=== PATIENT | female | born 1945 | race Caucasian/White ===

== ENCOUNTER → 2017-06-07 | Outpatient (CLI) | payer OTHER ==
[~2017-06-07] MED LIST: ACETAMINOPHEN325 M2 PO; ADVIL,MOTRIN,R200 MG PO; ASPIRIN81 M1 PO; BACTRIM DS 8001 TA1 PO; BLEPH-10 15 ML15 ML OP; CIPRO500 MG PO; CIPROFLOXACIN500 MG PO; COUMADIN1 MG PO; COUMADIN6 M1 PO; Coumadin5 MG PO; FLAGYL500 MG PO; HYDROCODONE BIT1 T11 PO; K-DUR20 MEQ PO; MEDROL DOSEPAK4 MG PO; MULTIPLE VITAMI1 TAB PO; MULTIVITAMIN FO1 CAP PO; NEURONTIN100 MG PO; NORCO 325 MG-51 TAB PO; NORFLEX100 MG PO; OXYCODONE-ACETAMINOP; PERCOCET 325 MG1 TA2 PO; PERCOCET 325 MG1 TA6 PO; PERCOCET 325 MG1 TA7 PO; PREDNICOT20 MG PO; PROBIOTIC FORMU1 CAP PO; SMZ TMP PO; VITAMIN B COMPL PO
[2017-06-07 10:44] LABS: BILIRUBIN NEGATIVE (NEGATIVE); BLOOD NEGATIVE (NEGATIVE); CLARITY CLEAR (CLEAR); COLOR YELLOW (YELLOW); GLUCOSE NEGATIVE (NEGATIVE); KETONE NEGATIVE (NEGATIVE); LEUKO ESTERASE NEGATIVE (NEGATIVE); NITRITE NEGATIVE (NEGATIVE); UROBILINOGEN 0.2 E.U./dl (0.2-1.0)
[2017-06-07 10:50] LABS: BASO # 0.1 10*3/uL (0.0-0.1); BASO % 0.6 % (0.0-1.0); EOS # 0.2 10*3/uL (0.0-0.4); EOS % 3.1 % (1.0-4.0); HEMATOCRIT 44.2 % (37.0-47.0); HEMOGLOBIN 14.5 g/dl (12.0-16.0); LYMPH # 1.8 10*3/uL (1.3-4.4); LYMPH % 23.9 % (27.0-41.0); MEAN CORPUSCULAR HGB 28.9 pg (27.0-31.0); MEAN CORPUSCULAR HGB CONC 32.8 g/dl (33.0-37.0); MEAN PLATELET VOLUME 10.5 fl (9.6-12.3); MONO # 0.6 10*3/uL (0.1-1.0); MONO % 7.8 % (3.0-9.0); NEUT # 4.9 10*3/uL (2.3-7.9); NEUT % 64.1 % (47.0-73.0); PLATELET COUNT AUTOMATED 205 10*3/uL (130-400); RED BLOOD COUNT 5.02 10*6/uL (4.10-5.10); RED CELL DISTRI WIDTH 12.9 % (0-14.5); WHITE BLOOD COUNT 7.7 10*3/uL (4.8-10.8)
[2017-06-07 11:13] LABS: ALBUMIN 3.9 gm/dl (3.1-4.5); CREATININE 1.48 mg/dL (0.55-1.02); CREATININE 1.51 mg/dL (0.55-1.02); PHOSPHOROUS 3.1 mg/dL (2.5-4.9); POTASSIUM 4.1 mmol/L (3.5-5.1); POTASSIUM 4.2 mmol/L (3.5-5.1)
== END | disposition home or self-care (01) ==
LOC: LAB 10:17
PROVIDERS: Internal Medicine Cardiovascular Disease; Internal Medicine Nephrology
DX: N18.3 Chronic kidney disease, stage 3 (moderate) (principal); I51.7 Cardiomegaly; R79.89 Other specified abnormal findings of blood chemistry

== ENCOUNTER 2017-07-10 07:13 | Inpatient (IN) | payer OTHER ==
[~2017-07-10] VITALS: Ht 170.1 cm; Wt 91.9 kg
--- NOTE | ~2017-07-10 | CON ---
[place], [place] REPORT OF CONSULTATION NAME: BLANE JETT UNIT #: [id number] ROOM: 503 DOCTOR: CORAL OCASIO [facility],LIZA BIRTHDATE: [birth year] DOS: 07/11/2017 CARDIOLOGY CONSULTATION IMPRESSION: Chest pain, evaluating for ischemic heart disease, loss of more than a half an hour and there is no recent workup and evaluating for ischemic heart disease with echocardiogram and stress Cardiolite is pending. The patient had a baby aspirin. The patient came to the Emergency Room. The patient has history of hypertension. No history of myocardial infarction and the patient also has dyslipidemia. Denies any nausea, vomiting or shortness of breath. MEDICATIONS: The patient only takes 2 baby aspirins daily. PAST SURGICAL HISTORY: The patient has a surgical history of hernia repair and ileostomy in the past. SOCIAL HISTORY: No history of smoking, quit smoking sometime back, used to smoke years ago and no alcohol or drug use. ALLERGIES: THE PATIENT IS ALLERGIC TO PENICILLIN AND HYDROMORPHONE. PHYSICAL EXAMINATION: VITAL SIGNS: Stable. Blood pressure 137/73 to 122/58, heart rate is 65, respiratory rate is 18, afebrile. GENERAL: Alert, not in any acute distress. NECK: No jugular venous distention, no carotid bruits. Neck is supple. RECTAL AND GENITAL: Deferred, unrelated. BREASTS: Deferred. NEUROLOGIC: No focal neurological deficits. Pulses are good and no evidence of acute coronary syndrome. LABORATORY DATA: Creatinine is 1.41, minimally elevated. Enzymes are unremarkable. Hemoglobin 14.9. Workup is in progress and I will review the myocardial perfusion scan and also the echocardiogram. Thank you very much for asking me to see the patient. I will follow the patient with you. LIZA MONCADA MD CM:CONSTR:REPORT OF CONSULTATION 0711 07/11/172058 interface
--- NOTE | ~2017-07-10 | EKG ---
[place], [place] ELECTROCARDIOGRAM REPORT NAME: BLANE JETT UNIT #: [id number] ROOM: 503 DOCTOR: CORAL OCASIO [facility],LIZA BIRTHDATE: [birth year] DOS: 07/10/2017 TIME: 10:07 CONCLUSION: 1. Sinus rhythm. 2. Cannot exclude old inferior wall infarction. 3. Nonspecific ST changes. LIZA MONCADA MD CM:EKGRPT:ELECTROCARDIOGRAM REPORT [address] [facility]
--- NOTE | ~2017-07-10 | EKG ---
[place], [place] ELECTROCARDIOGRAM REPORT NAME: BLANE JETT UNIT #: [id number] ROOM: [facility] DOCTOR: CORAL OCASIO [facility],LIZA BIRTHDATE: [birth year] DOS: 07/10/2017 TIME: 07:21 CONCLUSION: 1. Sinus rhythm. 2. Poor R-wave progression in the precordial leads. 3. Cannot exclude old inferior wall infarction. LIZA MONCADA MD CM:EKGRPT:ELECTROCARDIOGRAM REPORT 1250 1354 LIZA MONCADA MD [facility]
--- NOTE | ~2017-07-10 | ST ---
[place], [place] EXERCISE STRESS TEST REPORT NAME: BLANE JETT UNIT #: [id number] ROOM: [facility] DOCTOR: CORAL OCASIO [facility],LIZA BIRTHDATE: [birth year] DOS: 07/11/2017 The patient received Lexiscan 0.4 mg over 10 seconds and isotope was injected. Heart rate is 102. Blood pressure response was good. No ischemic changes in the EKG. No complications noted. Myocardial perfusion scan to follow. LIZA MONCADA MD CM:STRESS:EXERCISE STRESS TEST REPORT 0704 22 LATANYA PAIGE MD [facility]
[2017-07-10 07:20] VITALS: BP 146/76
[2017-07-10 07:26] LABS: BASO # 0.1 10*3/uL (0.0-0.1); BASO % 0.7 % (0.0-1.0); EOS # 0.2 10*3/uL (0.0-0.4); EOS % 3.1 % (1.0-4.0); HEMOGLOBIN 14.9 g/dl (12.0-16.0); LYMPH # 1.7 10*3/uL (1.3-4.4); LYMPH % 25.4 % (27.0-41.0); MEAN CELL VOLUME 87.5 fl (81.0-99.0); MEAN CORPUSCULAR HGB CONC 33.1 g/dl (33.0-37.0); MEAN PLATELET VOLUME 10.2 fl (9.6-12.3); MONO # 0.6 10*3/uL (0.1-1.0); MONO % 8.1 % (3.0-9.0); NEUT # 4.2 10*3/uL (2.3-7.9); NEUT % 62.4 % (47.0-73.0); PLATELET COUNT AUTOMATED 211 10*3/uL (130-400); RED BLOOD COUNT 5.14 10*6/uL (4.10-5.10); WHITE BLOOD COUNT 6.8 10*3/uL (4.8-10.8)
[2017-07-10 07:34] LABS: ACT PARTIAL THROMBO TIME 22.8 SECONDS (20.8-31.5)
[2017-07-10 07:41] LABS: ALBUMIN 3.8 gm/dl (3.1-4.5); ALKALINE PHOSPHATASE 79 U/L (45-117); BUN 21 mg/dl (7-24); CHLORIDE 103 mmol/L (98-107); CREATININE 1.41 mg/dL (0.55-1.02); SGOT/AST 20 IU/L (3-35); SGPT/ALT 19 U/L (12-78); SODIUM 142 mmol/L (136-145); TOTAL PROTEIN 7.3 gm/dL (6.4-8.2)
[2017-07-10 07:44] LABS: TROPONIN I < 0.015 ng/ml (<0.045)
--- NOTE | 2017-07-10 07:45 | NUR ---
PATIENT STATES THAT SHE DID TAKE A BABY ASA AT HOME THIS MORNING. KIKO ROLLE
--- NOTE | 2017-07-10 08:00 | NUR ---
PATIENT DENIES ANY COMPLAINTS OR PAIN AT THIS TIME, RESPIRATIONS ARE EASY AND NONLABORED, PATIENT IS RESITNG IN BED, PRESENT IN THE ROOM WITH THE PATIENT, CONTINUING TO MONITOR THE PATIENT. KIKO ROLLE
[2017-07-10 08:10] VITALS: BP 116/38
--- NOTE | 2017-07-10 08:30 | NUR ---
A 72, admitted to , under the services of LATANYA Dozier DO with a diagnosis of CHEST PAIN. Chief complaint is CHEST PAIN. Patient arrived via bed from ER. Monitor applied. Initial assessment completed. Vital signs taken and recorded. LATANYA DOZIER DO notified of admission to the unit. Orders received. See assessment for past medical history, medications and allergies. Patient and/or family oriented to unit. [facility]. Clothing/patient valuable form completed. ANNI LOPEZ
--- NOTE | 2017-07-10 08:39 | NUR ---
PATIENT TAKEN TO ROOM 503-2 PLACED IN THE BED, PLACED ON THE MONITOR CARE TRANSFERRED TO FOUZIA LOPEZ RN. KIKO ROLLE
[2017-07-10 08:57] VITALS: BP 116/38
--- NOTE | 2017-07-10 09:12 | NUR ---
MED REC COMPLETED [facility] TE[facility]PH[facility].
--- NOTE | 2017-07-10 09:41 | NUR ---
A 72, admitted to , under the services of LATANYA Dozier DO with a diagnosis of CHEST PAIN . Chief complaint is CHEST PAIN. Patient arrived via bed from ER. Monitor applied. Initial assessment completed. Vital signs taken and recorded. LATANYA DOZIER DO notified of admission to the unit. Orders received. See assessment for past medical history, medications and allergies. Patient and/or family oriented to unit. [facility]. Clothing/patient valuable form completed. ANNI LOPEZ
--- NOTE | 2017-07-10 09:44 | NUR ---
PT REFUSED FLU AND PNEUMOVAX SHOTS.
[2017-07-10] MEDS ORDERED: METOPROLOL SUCC25 M2 PO (09:45)
[2017-07-10 12:00] VITALS: BP 137/73
--- NOTE | 2017-07-10 14:03 | NUR ---
MED RECONCILIATION COMPLETED WITH DAUGHTER AT BEDSIDE WITH MED LIST.
--- NOTE | 2017-07-10 14:38 | NUR ---
Patient resting quietly with no c/o discomfort. Respirations easy and regular. Vital signs stable. No overt distress. RESPS EASY ON RA. DENIES CHEST PAIN AT THIS TIME. CALL FLORA MOLINA. ANNI LOPEZ
[2017-07-10 16:00] VITALS: BP 133/63
[2017-07-10 20:00] VITALS: BP 122/58
[2017-07-11] VITALS: BP 100/45
--- NOTE | 2017-07-11 01:39 | NUR ---
24 HR chart check completed.
--- NOTE | 2017-07-11 07:06 | NUR ---
INFORMED SIGNED CONSENT OBTAINED FOR LEXISCAN STRESS TEST WITH DR MONCADA. RESTING EKG NSR WITH RARE PVC HR 61 BP 144/82. PULSE OX 95% LUNGS CLEAR. PT COMPLETED ONE MINUTE OF A LEXISCAN PROTOCOL COMPLETED WITH PT RECEIVING LEXISCAN 0.4MG IV OVER 10 SECONDS. PT REACHED A PEAK HR OF 102 BP 138/88. PT C/O SOB AND NAUSEA. RARE PVC NOTED NO ST CHANGES NOTED. LAST RECOVERY HR OF 95 BP 128/74. PT IN STABLE CONDITION, AWAITING NUCLEAR IMAGES.
--- NOTE | 2017-07-11 07:18 | NUR ---
Shift chart check completed.
[2017-07-11 08:00] VITALS: BP 135/60
--- NOTE | 2017-07-11 08:30 | NUR ---
Reel Blade Bender Furnace Tender in to talk to patient. Patient states lives at HOME with HER . There are 0 steps in the home. Physician: DR DILLARD[facility] REPLACEMENT Pharmacy: [facility] [place] Home health services: NONE Patient's level of ADLs: INDEPENDENT Patient has working utilities: YES DME: NONE Follow-up physician's appointment after d/c: WILL BE MADE PRIOR TO DC Does patient want to access PORTAL?: Discharge plan HOME. [facility]
--- NOTE | 2017-07-11 08:54 | NUR ---
PT BACK FROM CARDIAC REHAB. TOLERATED STRESS TEST WELL. VOICES NO NEEDS AT THIS TIME. CALL LIGHT IN REACH. AT BEDSIDE.
[2017-07-11 09:13] LABS: BASO # 0.1 10*3/uL (0.0-0.1); BASO % 0.8 % (0.0-1.0); EOS # 0.1 10*3/uL (0.0-0.4); EOS % 1.8 % (1.0-4.0); HEMATOCRIT 47.9 % (37.0-47.0); HEMOGLOBIN 15.6 g/dl (12.0-16.0); LYMPH # 1.5 10*3/uL (1.3-4.4); LYMPH % 20.2 % (27.0-41.0); MEAN CELL VOLUME 89.4 fl (81.0-99.0); MEAN CORPUSCULAR HGB 29.1 pg (27.0-31.0); MEAN CORPUSCULAR HGB CONC 32.6 g/dl (33.0-37.0); MEAN PLATELET VOLUME 10.5 fl (9.6-12.3); MONO # 0.6 10*3/uL (0.1-1.0); MONO % 8.6 % (3.0-9.0); NEUT # 4.9 10*3/uL (2.3-7.9); NEUT % 68.2 % (47.0-73.0); PLATELET COUNT AUTOMATED 202 10*3/uL (130-400); RED BLOOD COUNT 5.36 10*6/uL (4.10-5.10); WHITE BLOOD COUNT 7.2 10*3/uL (4.8-10.8)
[2017-07-11 09:20] LABS: CREATININE 1.56 mg/dL (0.55-1.02); MAGNESIUM 2.1 mg/dL (1.5-2.1); POTASSIUM 4.2 mmol/L (3.5-5.1); TOTAL PROTEIN 7.4 gm/dL (6.4-8.2)
[2017-07-11 09:25] LABS: FREE T4 1.18 ng/dl (0.76-1.46); THYROID STIM HORMONE (HS) 1.15 uIU/ml (0.358-4.75)
[2017-07-11 09:48] LABS: VITAMIN D, 25-HYDROXY 20.9 ng/mL (30-100)
[2017-07-11 12:00] VITALS: BP 112/52
--- NOTE | 2017-07-11 15:20 | NUR ---
Shift chart check completed.
[2017-07-11 16:00] VITALS: BP 112/53
--- NOTE | 2017-07-11 16:34 | NUR ---
RADIOLOGY CALLED ABOUT NUCLEAR PORTION OF STRESS TEST FROM THIS AM. PER THE PATIENT DR MONCADA SAID SHE MAY GO HOME IF OK
[2017-07-11] MEDS ORDERED: ATORVASTATIN CA40 M1 PO (17:42)
[2017-07-11] MEDS ORDERED: Vitamin D PO (17:42)
[2017-07-11] MEDS ORDERED: VITAMIN D-32000 UNIT PO (17:43)
--- NOTE | 2017-07-11 17:43 | NUR ---
RECEIVED CALL FROM DR MONCADA THAT IT IS OK TO DISCHARGE HOME - DR BANEGAS NOTIFIED. Hep Lock discontinued. Site asymptomatic. Pressure applied. Sterile dressing applied. MONITOR REMOVED. ANTHONY
--- NOTE | 2017-07-11 18:02 | NUR ---
Discharge instructions reviewed with patient/family. Patient receptive and verbalizes understanding. Follow-up care arranged. Written instructions given to patient/family. PATIENT TAKEN OUT VIA WHEEL CHAIR WITH BELONGINGS. LLOYD ARORA
== END 2017-07-11 18:02 | disposition home or self-care (01) | DRG 313 ==
LOC: ED 07:13 → EDHOLD 08:04 → 5E 08:04
PROVIDERS: Emergency Medicine; Hospitalist; ADMIT Internal Medicine
PROC: 4A02XM4 Measurement of Cardiac Total Activity, External Approach (ICD-10-PCS; principal; 2017-07-11)
DX: R07.9 Chest pain, unspecified (principal); N18.3 Chronic kidney disease, stage 3 (moderate); E55.9 Vitamin D deficiency, unspecified; E66.9 Obesity, unspecified; E78.5 Hyperlipidemia, unspecified; R73.03 Prediabetes; I12.9 Hypertensive chronic kidney disease with stage 1 through stage 4 chronic kidney disease, or unspecified chronic kidney disease; R91.8 Other nonspecific abnormal finding of lung field; Z88.0 Allergy status to penicillin; Z88.6 Allergy status to analgesic agent; Z87.891 Personal history of nicotine dependence; Z80.9 Family history of malignant neoplasm, unspecified; Z79.82 Long term (current) use of aspirin; Z79.899 Other long term (current) drug therapy

== ENCOUNTER → 2017-09-11 | Outpatient (CLI) | payer OTHER ==
[~2017-09-11] MED LIST changes: +ATORVASTATIN CA40 M1 PO; +METOPROLOL SUCC25 M2 PO; +VITAMIN D-32000 UNIT PO; +Vitamin D PO
== END | disposition home or self-care (01) ==
LOC: RAD 16:18
DX: J40 Bronchitis, not specified as acute or chronic (principal); R73.03 Prediabetes

== ENCOUNTER → 2017-09-18 | Outpatient (CLI) | payer OTHER | END | disposition home or self-care (01) | LOC: CT 07:53 | DX: R47.81 Slurred speech (principal); R53.1 Weakness ==

== ENCOUNTER → 2017-10-09 | Outpatient (CLI) | payer OTHER ==
--- NOTE | ~2017-10-09 | PROC NOTE ---
[place], [place] [facility]EDURE [id number] #: [id number] ROOM: DOCTOR: ERASMOSHARI BIRTHDATE: [birth year] DOS: 10/09/2017 MODIFIED BARIUM SWALLOW DATE OF EVALUATION: 10/09/17 ORDERING PHYSICIAN: RADIOLOGIST: Dr. Saldana. BACKGROUND INFORMATION: The patient is a 72-year-old female who was seen for modified barium swallow. This test was ordered to view the anatomy and physiology of the swallowing mechanism. The patient was alert and cooperative and able to provide her own case history. She reported that for the past couple of months, she has been experiencing a feeling of globus with food and liquids as well as choking episodes. She has also noted slurred speech. She reported that she had testing done to rule out CVA and none was found. She currently receives a regular diet and thin liquids. For today's assessment, she was alert and able to follow all commands. Respiratory status was within normal limits. Oral peripheral examination revealed presence of top denture only. Lingual, labial, and buccal skills were within normal limits in terms of strength, range of motion, and coordination. Volitional cough and swallow were adequate. The patient was noted to display a hoarse dysphonic vocal quality. Careful listening was needed to fully comprehend what she is saying. METHODS AND MATERIALS USED FOR THE EXAM: The patient was positioned in the lateral plane and examination was viewed under fluoroscopy. The patient was presented with a variety of consistencies to assess swallowing skills including applesauce mixed with barium presented in half teaspoon amounts, barium-coated cookie and sandwich taken in bite size pieces and thin liquid barium taken both by cup and straw. ORAL PHASE: Unremarkable. PHARYNGEAL PHASE: Unremarkable. ESOPHAGEAL PHASE: This phase of the swallow was not formally assessed during this exam. IMPRESSIONS AND RECOMMENDATIONS: Based upon assessment results, this 72-year-old patient presents with swallowing skills that are within normal limits. No penetration, aspiration, or residue observed. Recommend, the patient remain on present diet with use of universal safe swallow strategies such as upright positioning for meals, small bites and sips, eating slowly and chewing thoroughly. It is also recommended that the patient undergo an ENT consult due to hoarse dysphonic vocal quality. These results and recommendations were shared with the patient and she verbalized understanding. No followup speech pathology services are warranted at this time. Thank you very much for this referral should you have any questions regarding [place], [place] PROCEDURE NOTE NAME: BLANE JETT UNIT #: [id number] ROOM: DOCTOR: SHARI ZIMMERMAN BIRTHDATE: [birth year] this patient, please contact the speech pathologist at [phone]. SHARI ZIMMERMAN CM:PROCNOTE:PROCEDURE NOTE 1135 1234 SHARI ZIMMERMAN
--- NOTE | ~2017-10-09 | SLPPOC ---
[place], [place] MIXER WET POUR PLAN OF CARE NAME: BLANE JETT UNIT #: [id number] ROOM: DOCTOR: LONNY SORIANO DO Speech Language Pathology Plan of Care Page 1 1 (Initial Evaluation) of Patient Name: BLANE JETT Date: 10/09/2017 11:36 AM : 1945 SOC Date: 10/09/2017 Provider: [facility] Provider #: [id number] Treating Clinician: NAKIA Henriquez-MIXER WET POUR Referring Physician: LONNY SORIANO 1 Visits From SOC: Onset Date Description Code Primary Diagnosis: 10/09/2017 A000.00 DIAGNOSIS FROM INTERFACE NOT FOUND IN [facility] TABLE Subjective Comments: Initial evaluation created to initiate the electronic medical record. Please see [employer] for details. Initial Level Goals Functional Limitation Reporting Swallowing G8996 - Swallowing functional limitation, current status at therapy episode outset and at reporting intervals Current Status: CH - 0 percent impaired, limited or restricted G8997 - Swallowing functional limitation, projected goal status, at therapy episode outset, at reporting intervals, and at discharge or to end reporting Goal Status: CH - 0 percent impaired, limited or restricted G8998 - Swallowing functional limitation, discharge status, at discharge from therapy or to end reporting Discharge Status: CH - 0 percent impaired, limited or restricted 10/09/2017 11:37:18 AM LONNY SORIANO Date/Time NAKIA Henriquez-MEGA Date I certify the need for these services furnished under this plan of treatment while under my care. State License #: [id number] CM:SLPPOC 1138 1137 IS THERAPY [place]
--- NOTE | ~2017-10-09 | SLPIE ---
[place], [place] PROGRAM MANAGEMENT ANALYST INITIAL EVALUATION NAME: BLANE JETT UNIT #: [id number] ROOM: DOCTOR: LONNY SORIANO DO Speech Language Pathology Initial Evaluation Page 1 1 of Patient Name: BLANE JETT Date: 10/09/2017 11:36 AM : 1945 SOC Date: 10/09/2017 Provider: [facility] Provider #: [id number] Treating Clinician: NAKIA Henriquez-PROGRAM MANAGEMENT ANALYST Referring Physician: LONNY SORIANO Patient Information Address: [address] [place] [address] Physician: LONNY SORIANO Physician #: [facility], [facility], Zip: [place], [place] [address] Occupation: Unknown # of Approved Visits: 0 Gender: Female Boiler Repair Supervisor: CHARLENE GONZALEZMADISON Rehabilitation Information / History Onset Date Code Description Primary Diagnosis: 10/09/2017 A000.00 DIAGNOSIS FROM INTERFACE NOT FOUND IN [facility] TABLE Subjective Comments: Initial evaluation created to initiate the electronic medical record. Please see [employer] for details. Rehabilitation Information / History Clinical Findings Functional Goals Functional Limitation Reporting Swallowing G8996 - Swallowing functional limitation, current status at therapy episode outset and at reporting intervals Current Status: CH - 0 percent impaired, limited or restricted G8997 - Swallowing functional limitation, projected goal status, at therapy episode outset, at reporting intervals, and at discharge or to end reporting Goal Status: CH - 0 percent impaired, limited or restricted G8998 - Swallowing functional limitation, discharge status, at discharge from therapy or to end reporting Discharge Status: CH - 0 percent impaired, limited or restricted 10/09/2017 11:37:18 AM NAKIA Henriquez-MEGA Date/Time [place], [place] PROGRAM MANAGEMENT ANALYST INITIAL EVALUATION NAME: BLANE JETT UNIT #: [id number] ROOM: DOCTOR: LONNY SORIANO DO [facility] License #: [id number] CM:LUCI 1138 1137 IS THERAPY [place]
--- NOTE | ~2017-10-09 | SLPPN ---
[place], [place] MANAGER URGENT CARE PROGRESS NOTE NAME: BLANE JETT UNIT #: [id number] ROOM: DOCTOR: LONNY SORIANO DO Speech Language Pathology Treatment Note Page 1 1 of Patient Name: BLANE JETT Date: 10/09/2017 11:37 AM : 1945 SOC Date: 10/09/2017 Provider: [facility] Provider #: [id number] Treating Clinician: NAKIA Henriquez-MANAGER URGENT CARE Referring Physician: LONNY SORIANO Onset Date Description Code Primary Diagnosis: 10/09/2017 A000.00 DIAGNOSIS FROM INTERFACE NOT FOUND IN [facility] TABLE Time In: 10:00 AM Time Out: 11:00 AM MANAGER URGENT CARE Interventions and CPT Codes Consisted of: CPT Code Modifiers Minutes Units MOTION FLUOROSCOPY/SWALLOW 49283 60 1 Total Minutes: 60 Total Timed Minutes: 0 Total Untimed Minutes: 60 Total Units: 1 Total Timed Units: 0 Total Untimed Units: 1 10/09/2017 11:38:03 AM NAKIA Henriquez-MEGA Date/Time State License #: [id number] CM:EL 1143 1143 IS THERAPY [place]
== END | disposition home or self-care (01) ==
LOC: RAD/SH 10:00
DX: R13.13 Dysphagia, pharyngeal phase (principal)

== ENCOUNTER → 2017-10-17 | Outpatient (CLI) | payer OTHER ==
[~2017-10-17] MED LIST changes: +PROTONIX40 MG PO
== END | disposition home or self-care (01) ==
LOC: CT 12:42
DX: E04.1 Nontoxic single thyroid nodule (principal); N18.3 Chronic kidney disease, stage 3 (moderate); R91.8 Other nonspecific abnormal finding of lung field

== ENCOUNTER 2017-10-19 02:04 | Emergency (ER) | payer OTHER ==
[~2017-10-19] VITALS: Ht 170.1 cm; Wt 81.6 kg
--- NOTE | ~2017-10-19 | O ---
[place], [place] OPERATIVE NOTE NAME: BLANE JETT UNIT #: [id number] ROOM: DOCTOR: SUSAN OCASIO,DELROY BIRTHDATE: [birth year] DOS: 10/19/2017 GASTROENDOSCOPIC REPORT HISTORY: A 72 years old patient who has presented with sudden abdominal pain nocturnally and had to call her son and they had to bring her to the hospital for cross abdominal pain, which is explained by family to be intolerable and the patient's blood work in the Emergency Room showed white blood cell to be 9.4, H and H of 13 and 41, lactic acid 1.3. Comprehensive metabolic panel: Creatinine 1.3 and GFR 45. Electrolytes were balanced. Amylase was normal. Troponin within normal limits. Urinalysis, no activity. CT scan of the abdomen was reviewed. There is no evidence of cholecystitis or pancreatitis. There is retained stool throughout the colon and sonographic study of the gallbladder was performed and cholelithiasis without cholecystitis. Negative Cordero sign was noticed. Her white blood cell, abbe to 11. Creatinine remained at 1.7. Amylase and lipase remained normal. Her urine culture, no growth. PAST MEDICAL HISTORY: Reviewed. Cholelithiasis, hyperlipidemia, essential hypertension, prediabetes status. PAST SURGICAL HISTORY: Previous diverticulitis and segmental colon resection, ileostomy and ileostomy repair and ventral hernia repair. ALLERGIES: PENICILLIN AND HYDROMORPHONE. HOME MEDICATIONS: Reviewed. SOCIAL HISTORY: Nonsmoker and nonalcohol consumer. REVIEW OF SYSTEMS: HEENT: Denies double vision, blurred vision. RESPIRATORY: Denies shortness of breath. CARDIOVASCULAR: Denies chest pain. DIGESTIVE SYSTEM: Cross abdominal pain. PHYSICAL EXAMINATION: VITAL SIGNS: Stable. HEENT: Benign: Supple, no thyromegaly. CHEST: Symmetric anatomy, equal expansion. HEART: Normal sinus rhythm. No gallop, no murmur. ABDOMEN: Soft. No hepato-organomegaly. Obese. Nonspecific tenderness. Bowel sounds present. EXTREMITIES: Benign. IMPRESSION: Abdominal pain, cholelithiasis, nausea sensation. PLAN AND DISCUSSION: Endoscopy today. PROCEDURE: Today's procedure therefore as a part of investigation is panendoscopy plus biopsy. [place], [place] OPERATIVE NOTE NAME: BLANE JETT UNIT #: [id number] ROOM: DOCTOR: SUSAN OCASIO,DELROY BIRTHDATE: [birth year] REPORT: After putting the patient in supine position, scope was introduced. Thereafter under direct visualization, advanced through the length of esophagus into gastric pouch. Food debris in the gastric pouch, which has been retained was noticed. Diffuse gastritis was seen. Antral biopsy was obtained. Duodenal bulb, second and third part within normal limits. The patient was extubated and tolerated the procedure well. IMPRESSION: Diffuse gastritis, status post biopsy, retention of some food product in duodenum and gastric pouch and esophagus signifying delayed gastric emptying and reflux. PLAN AND DISCUSSION: Awaiting biopsy result. Recommending gastric emptying study to be done after she recovers from cholecystectomy and being off the pain medication. In such a time, we will decide perhaps we have to use prokinetics for emptying improvement. DELROY DAVIS MD CM:OPRECORD:OPERATIVE NOTE 1057 1136 DELROY DAVIS MD 10/22/17 1135 interface
[~2017-10-19 02:04] MED LIST changes: -PROTONIX40 MG PO
[2017-10-19 03:03] LABS: BASO # 0.1 10*3/uL (0.0-0.1); BASO % 0.7 % (0.0-1.0); EOS # 0.3 10*3/uL (0.0-0.4); EOS % 3.1 % (1.0-4.0); HEMATOCRIT 41.7 % (37.0-47.0); HEMOGLOBIN 13.8 g/dl (12.0-16.0); LYMPH # 1.5 10*3/uL (1.3-4.4); LYMPH % 16.2 % (27.0-41.0); MEAN CELL VOLUME 89.1 fl (81.0-99.0); MEAN CORPUSCULAR HGB 29.5 pg (27.0-31.0); MEAN CORPUSCULAR HGB CONC 33.1 g/dl (33.0-37.0); MEAN PLATELET VOLUME 10.2 fl (9.6-12.3); MONO # 0.7 10*3/uL (0.1-1.0); MONO % 7.9 % (3.0-9.0); NEUT # 6.7 10*3/uL (2.3-7.9); NEUT % 71.8 % (47.0-73.0); PLATELET COUNT AUTOMATED 208 10*3/uL (130-400); RED BLOOD COUNT 4.68 10*6/uL (4.10-5.10); RED CELL DISTRI WIDTH 13.1 % (0-14.5); WHITE BLOOD COUNT 9.4 10*3/uL (4.8-10.8)
[2017-10-19 03:19] LABS: BILIRUBIN NEGATIVE (NEGATIVE); BLOOD NEGATIVE (NEGATIVE); CLARITY SL CLOUDY (CLEAR); COLOR YELLOW (YELLOW); GLUCOSE NEGATIVE (NEGATIVE); KETONE TRACE (NEGATIVE); LEUKO ESTERASE TRACE (NEGATIVE); NITRITE NEGATIVE (NEGATIVE); UROBILINOGEN 0.2 E.U./dl (0.2-1.0)
[2017-10-19 03:20] LABS: ALKALINE PHOSPHATASE 156 U/L (45-117); BUN 21 mg/dl (7-24); CHLORIDE 108 mmol/L (98-107); CREATININE 1.38 mg/dL (0.55-1.02); POTASSIUM 3.9 mmol/L (3.5-5.1); SGOT/AST 51 IU/L (3-35); SGPT/ALT 42 U/L (12-78); SODIUM 144 mmol/L (136-145)
[2017-10-19 03:21] LABS: TROPONIN I < 0.015 ng/ml (<0.045)
[2017-10-19 03:36] LABS: BACTERIA 1+
[2017-10-19 10:24] VITALS: BP 99/58
== END 2017-10-19 10:48 | disposition home or self-care (01) ==
LOC: ED 02:04
PROVIDERS: Emergency Medicine
DX: K80.80 Other cholelithiasis without obstruction (principal); R10.13 Epigastric pain; R10.11 Right upper quadrant pain; I12.9 Hypertensive chronic kidney disease with stage 1 through stage 4 chronic kidney disease, or unspecified chronic kidney disease; E11.22 Type 2 diabetes mellitus with diabetic chronic kidney disease; N18.3 Chronic kidney disease, stage 3 (moderate); E78.5 Hyperlipidemia, unspecified; E66.9 Obesity, unspecified; Z68.34 Body mass index [BMI] 34.0-34.9, adult; Z87.891 Personal history of nicotine dependence; Z98.890 Other specified postprocedural states; Z79.899 Other long term (current) drug therapy; Z88.0 Allergy status to penicillin; Z88.5 Allergy status to narcotic agent; Z79.82 Long term (current) use of aspirin

== ENCOUNTER 2017-10-20 03:13 | Inpatient (IN) | payer OTHER ==
[~2017-10-20] VITALS: Ht 170.1 cm; Wt 84.4 kg
[2017-10-20] VITALS (8 sets, daily range): BP systolic 117–140; BP diastolic 42–61
--- NOTE | ~2017-10-20 | O ---
[place], [place] OPERATIVE NOTE NAME: BLANE JETT UNIT #: [id number] ROOM: 426 DOCTOR: SUSAN OCASIODELROY BIRTHDATE: [birth year] DOS: 10/22/2017 GASTROENDOSCOPIC REPORT HISTORY: A 72 years old patient who has presented with sudden abdominal pain nocturnally and had to call her son and they had to bring her to the hospital for cross abdominal pain, which is explained by family to be intolerable and the patient's blood work in the Emergency Room showed white blood cell to be 9.4, H and H of 13 and 41, lactic acid 1.3. Comprehensive metabolic panel: Creatinine 1.3 and GFR 45. Electrolytes were balanced. Amylase was normal. Troponin within normal limits. Urinalysis, no activity. CT scan of the abdomen was reviewed. There is no evidence of cholecystitis or pancreatitis. There is retained stool throughout the colon and sonographic study of the gallbladder was performed and cholelithiasis without cholecystitis. Negative Cordero sign was noticed. Her white blood cell, abbe to 11. Creatinine remained at 1.7. Amylase and lipase remained normal. Her urine culture, no growth. PAST MEDICAL HISTORY: Reviewed. Cholelithiasis, hyperlipidemia, essential hypertension, prediabetes status. PAST SURGICAL HISTORY: Previous diverticulitis and segmental colon resection, ileostomy and ileostomy repair and ventral hernia repair. ALLERGIES: PENICILLIN AND HYDROMORPHONE. HOME MEDICATIONS: Reviewed. SOCIAL HISTORY: Nonsmoker and nonalcohol consumer. REVIEW OF SYSTEMS: HEENT: Denies double vision, blurred vision. RESPIRATORY: Denies shortness of breath. CARDIOVASCULAR: Denies chest pain. DIGESTIVE SYSTEM: Cross abdominal pain. PHYSICAL EXAMINATION: VITAL SIGNS: Stable. HEENT: Benign: Supple, no thyromegaly. CHEST: Symmetric anatomy, equal expansion. HEART: Normal sinus rhythm. No gallop, no murmur. ABDOMEN: Soft. No hepato-organomegaly. Obese. Nonspecific tenderness. Bowel sounds present. EXTREMITIES: Benign. IMPRESSION: Abdominal pain, cholelithiasis, nausea sensation. PLAN AND DISCUSSION: Endoscopy today. PROCEDURE: Today's procedure therefore as a part of investigation is panendoscopy plus biopsy. [place], [place] OPERATIVE NOTE NAME: BLANE JETT UNIT #: [id number] ROOM: 426 DOCTOR: SUSAN OCASIO,DELROY BIRTHDATE: [birth year] REPORT: After putting the patient in supine position, scope was introduced. Thereafter under direct visualization, advanced through the length of esophagus into gastric pouch. Food debris in the gastric pouch, which has been retained was noticed. Diffuse gastritis was seen. Antral biopsy was obtained. Duodenal bulb, second and third part within normal limits. The patient was extubated and tolerated the procedure well. IMPRESSION: Diffuse gastritis, status post biopsy, retention of some food product in duodenum and gastric pouch and esophagus signifying delayed gastric emptying and reflux. PLAN AND DISCUSSION: Awaiting biopsy result. Recommending gastric emptying study to be done after she recovers from cholecystectomy and being off the pain medication. In such a time, we will decide perhaps we have to use prokinetics for emptying improvement. DELROY DAVIS MD CM:OPRECORD:OPERATIVE NOTE 1057 1136 DELROY DAVIS MD 10/23/17 1318 interface
[2017-10-20 03:51] LABS: BASO % 0.4 % (0.0-1.0); EOS # 0.2 10*3/uL (0.0-0.4); HEMATOCRIT 44.8 % (37.0-47.0); HEMOGLOBIN 14.7 g/dl (12.0-16.0); LYMPH # 1.4 10*3/uL (1.3-4.4); LYMPH % 12.7 % (27.0-41.0); MEAN CORPUSCULAR HGB 28.9 pg (27.0-31.0); MEAN CORPUSCULAR HGB CONC 32.8 g/dl (33.0-37.0); MEAN PLATELET VOLUME 10.4 fl (9.6-12.3); MONO # 0.6 10*3/uL (0.1-1.0); MONO % 5.7 % (3.0-9.0); NEUT # 8.7 10*3/uL (2.3-7.9); PLATELET COUNT AUTOMATED 220 10*3/uL (130-400); RED BLOOD COUNT 5.09 10*6/uL (4.10-5.10)
[2017-10-20 04:12] LABS: ALBUMIN 3.8 gm/dl (3.1-4.5); CREATININE 1.49 mg/dL (0.55-1.02); POTASSIUM 4.3 mmol/L (3.5-5.1); TOTAL PROTEIN 7.1 gm/dL (6.4-8.2)
[2017-10-21 00:30] VITALS: BP 100/47
[2017-10-21 06:48] LABS: BASO % 0.2 % (0.0-1.0); EOS # 0.1 10*3/uL (0.0-0.4); EOS % 0.8 % (1.0-4.0); HEMATOCRIT 43.2 % (37.0-47.0); HEMOGLOBIN 13.8 g/dl (12.0-16.0); LYMPH # 0.9 10*3/uL (1.3-4.4); LYMPH % 7.4 % (27.0-41.0); MEAN CELL VOLUME 90.2 fl (81.0-99.0); MEAN CORPUSCULAR HGB 28.8 pg (27.0-31.0); MEAN CORPUSCULAR HGB CONC 31.9 g/dl (33.0-37.0); MEAN PLATELET VOLUME 10.4 fl (9.6-12.3); MONO # 0.8 10*3/uL (0.1-1.0); MONO % 6.8 % (3.0-9.0); NEUT # 10.4 10*3/uL (2.3-7.9); NEUT % 84.4 % (47.0-73.0); PLATELET COUNT AUTOMATED 216 10*3/uL (130-400); RED BLOOD COUNT 4.79 10*6/uL (4.10-5.10); RED CELL DISTRI WIDTH 13.1 % (0-14.5); WHITE BLOOD COUNT 12.3 10*3/uL (4.8-10.8)
[2017-10-21 07:00] LABS: ALBUMIN 3.1 gm/dl (3.1-4.5); CREATININE 1.3 mg/dL (0.55-1.02); PHOSPHOROUS 3.9 mg/dL (2.5-4.9); POTASSIUM 4.7 mmol/L (3.5-5.1); TOTAL PROTEIN 6.2 gm/dL (6.4-8.2)
[2017-10-21 07:06] LABS: FREE T4 1.27 ng/dl (0.76-1.46); THYROID STIM HORMONE (HS) 0.843 uIU/ml (0.358-4.75)
[2017-10-21 07:26] LABS: ACT PARTIAL THROMBO TIME 24.7 SECONDS (20.8-31.5)
[2017-10-21 07:46] VITALS: BP 120/62
[2017-10-21 08:26] LABS: VITAMIN D, 25-HYDROXY 23.2 ng/mL (30-100)
[2017-10-21 12:00] VITALS: BP 114/46
[2017-10-21 16:00] VITALS: BP 137/58
[2017-10-21 20:05] VITALS: BP 124/58
[2017-10-22] VITALS (11 sets, daily range): BP systolic 103–134; BP diastolic 42–70
[2017-10-22 07:21] LABS: BASO % 0.4 % (0.0-1.0); EOS # 0.2 10*3/uL (0.0-0.4); EOS % 1.5 % (1.0-4.0); HEMATOCRIT 39.3 % (37.0-47.0); HEMOGLOBIN 12.6 g/dl (12.0-16.0); LYMPH # 0.9 10*3/uL (1.3-4.4); LYMPH % 8.9 % (27.0-41.0); MEAN CELL VOLUME 89.9 fl (81.0-99.0); MEAN CORPUSCULAR HGB 28.8 pg (27.0-31.0); MEAN CORPUSCULAR HGB CONC 32.1 g/dl (33.0-37.0); MEAN PLATELET VOLUME 10.9 fl (9.6-12.3); MONO % 9.9 % (3.0-9.0); NEUT # 8.2 10*3/uL (2.3-7.9); PLATELET COUNT AUTOMATED 199 10*3/uL (130-400); RED BLOOD COUNT 4.37 10*6/uL (4.10-5.10); RED CELL DISTRI WIDTH 13.2 % (0-14.5); WHITE BLOOD COUNT 10.4 10*3/uL (4.8-10.8)
[2017-10-22 07:55] LABS: POTASSIUM 4.6 mmol/L (3.5-5.1)
[2017-10-22 08:09] LABS: ALBUMIN 2.9 gm/dl (3.1-4.5); CREATININE 1.23 mg/dL (0.55-1.02); PHOSPHOROUS 2.9 mg/dL (2.5-4.9); TOTAL PROTEIN 5.7 gm/dL (6.4-8.2)
[2017-10-23] VITALS: BP 114/50
[2017-10-23 08:00] VITALS: BP 111/55
[2017-10-23 10:37] LABS: BASO % 0.2 % (0.0-1.0); EOS # 0.1 10*3/uL (0.0-0.4); EOS % 1.7 % (1.0-4.0); HEMATOCRIT 40.1 % (37.0-47.0); HEMOGLOBIN 12.9 g/dl (12.0-16.0); LYMPH % 12.3 % (27.0-41.0); MEAN CELL VOLUME 89.5 fl (81.0-99.0); MEAN CORPUSCULAR HGB 28.8 pg (27.0-31.0); MEAN CORPUSCULAR HGB CONC 32.2 g/dl (33.0-37.0); MEAN PLATELET VOLUME 10.2 fl (9.6-12.3); MONO # 1.2 10*3/uL (0.1-1.0); MONO % 14.5 % (3.0-9.0); NEUT # 5.7 10*3/uL (2.3-7.9); NEUT % 70.9 % (47.0-73.0); PLATELET COUNT AUTOMATED 239 10*3/uL (130-400); RED BLOOD COUNT 4.48 10*6/uL (4.10-5.10); RED CELL DISTRI WIDTH 13.2 % (0-14.5); WHITE BLOOD COUNT 8.1 10*3/uL (4.8-10.8)
[2017-10-23 10:48] LABS: CREATININE 1.34 mg/dL (0.55-1.02); POTASSIUM 4.3 mmol/L (3.5-5.1)
[2017-10-23 12:00] VITALS: BP 123/57
[2017-10-23 15:22] LABS: ALBUMIN 2.8 gm/dl (3.1-4.5); BILIRUBIN, DIRECT 0.2 mg/dL (0.0-0.2); TOTAL PROTEIN 5.8 gm/dL (6.4-8.2)
[2017-10-23 16:00] VITALS: BP 117/58
[2017-10-23 20:00] VITALS: BP 127/52
[2017-10-24] VITALS: BP 118/40
[2017-10-24 07:23] LABS: BASO % 0.5 % (0.0-1.0); EOS # 0.2 10*3/uL (0.0-0.4); EOS % 3.9 % (1.0-4.0); HEMATOCRIT 37.6 % (37.0-47.0); HEMOGLOBIN 12.1 g/dl (12.0-16.0); LYMPH # 0.8 10*3/uL (1.3-4.4); LYMPH % 13.5 % (27.0-41.0); MEAN CELL VOLUME 90.4 fl (81.0-99.0); MEAN CORPUSCULAR HGB 29.1 pg (27.0-31.0); MEAN CORPUSCULAR HGB CONC 32.2 g/dl (33.0-37.0); MEAN PLATELET VOLUME 10.5 fl (9.6-12.3); MONO # 0.8 10*3/uL (0.1-1.0); MONO % 13.8 % (3.0-9.0); NEUT # 3.9 10*3/uL (2.3-7.9); NEUT % 68.1 % (47.0-73.0); PLATELET COUNT AUTOMATED 199 10*3/uL (130-400); RED BLOOD COUNT 4.16 10*6/uL (4.10-5.10); RED CELL DISTRI WIDTH 13.2 % (0-14.5); WHITE BLOOD COUNT 5.7 10*3/uL (4.8-10.8)
[2017-10-24 07:46] LABS: CREATININE 1.16 mg/dL (0.55-1.02); POTASSIUM 4.3 mmol/L (3.5-5.1)
[2017-10-24 08:00] VITALS: BP 123/57
[2017-10-24 12:00] VITALS: BP 124/58
[2017-10-24 16:00] VITALS: BP 128/60
[2017-10-24 20:00] VITALS: BP 153/56
[2017-10-25] VITALS: BP 133/49
[2017-10-25 07:02] LABS: BASO % 0.8 % (0.0-1.0); EOS # 0.2 10*3/uL (0.0-0.4); EOS % 4.7 % (1.0-4.0); HEMATOCRIT 35.7 % (37.0-47.0); HEMOGLOBIN 11.7 g/dl (12.0-16.0); LYMPH # 0.9 10*3/uL (1.3-4.4); LYMPH % 16.5 % (27.0-41.0); MEAN CELL VOLUME 89.3 fl (81.0-99.0); MEAN CORPUSCULAR HGB 29.3 pg (27.0-31.0); MEAN CORPUSCULAR HGB CONC 32.8 g/dl (33.0-37.0); MEAN PLATELET VOLUME 10.2 fl (9.6-12.3); MONO # 0.6 10*3/uL (0.1-1.0); MONO % 12.2 % (3.0-9.0); NEUT # 3.4 10*3/uL (2.3-7.9); NEUT % 65.4 % (47.0-73.0); PLATELET COUNT AUTOMATED 185 10*3/uL (130-400); WHITE BLOOD COUNT 5.2 10*3/uL (4.8-10.8)
[2017-10-25 07:37] LABS: POTASSIUM 4.3 mmol/L (3.5-5.1)
[2017-10-25 07:48] LABS: ALBUMIN 2.5 gm/dl (3.1-4.5); CREATININE 1.09 mg/dL (0.55-1.02); TOTAL PROTEIN 5.3 gm/dL (6.4-8.2)
[2017-10-25 08:00] VITALS: BP 143/45
[2017-10-25 12:00] VITALS: BP 123/42
[2017-10-25 16:00] VITALS: BP 154/58
[2017-10-25 20:00] VITALS: BP 147/62
[2017-10-26] VITALS: BP 140/61
[2017-10-26 08:00] VITALS: BP 130/61
[2017-10-26] MEDS ORDERED: PROTONIX40 MG PO (10:57)
== END 2017-10-26 12:15 | disposition home or self-care (01) | DRG 418 ==
LOC: ED 03:13 → EDHOLD 05:21 → 4E 05:21
PROVIDERS: Emergency Medicine; Hospitalist; Internal Medicine; Internal Medicine Gastroenterology; Internal Medicine Nephrology; Registered Nurse
PROC: 0DB68ZX Excision of Stomach, Via Natural or Artificial Opening Endoscopic, Diagnostic (ICD-10-PCS; principal; 2017-10-22)
PROC: 0FT44ZZ Resection of Gallbladder, Percutaneous Endoscopic Approach (ICD-10-PCS; principal; 2017-10-22)
DX: K80.20 Calculus of gallbladder without cholecystitis without obstruction (principal); K91.30 Postprocedural intestinal obstruction, unspecified as to partial versus complete; N18.3 Chronic kidney disease, stage 3 (moderate); D72.0 Genetic anomalies of leukocytes; E55.9 Vitamin D deficiency, unspecified; K29.70 Gastritis, unspecified, without bleeding; R73.9 Hyperglycemia, unspecified; R13.10 Dysphagia, unspecified; I12.9 Hypertensive chronic kidney disease with stage 1 through stage 4 chronic kidney disease, or unspecified chronic kidney disease; E66.9 Obesity, unspecified; E78.5 Hyperlipidemia, unspecified; D72.810 Lymphocytopenia; Z88.0 Allergy status to penicillin; Z88.5 Allergy status to narcotic agent; Z72.89 Other problems related to lifestyle; Z80.9 Family history of malignant neoplasm, unspecified; Z87.891 Personal history of nicotine dependence; Z68.30 Body mass index [BMI] 30.0-30.9, adult; Z79.82 Long term (current) use of aspirin

== ENCOUNTER → 2018-06-11 | Outpatient (CLI) | payer OTHER ==
[~2018-06-11] MED LIST changes: +PROTONIX40 MG PO
[2018-06-11 17:19] LABS: BASO % 0.5 % (0.0-1.0); EOS # 0.3 10*3/uL (0.0-0.4); EOS % 3.2 % (1.0-4.0); HEMATOCRIT 41.6 % (37.0-47.0); HEMOGLOBIN 13.9 g/dl (12.0-16.0); LYMPH # 2.4 10*3/uL (1.3-4.4); LYMPH % 30.8 % (27.0-41.0); MEAN CELL VOLUME 90.6 fl (81.0-99.0); MEAN CORPUSCULAR HGB 30.3 pg (27.0-31.0); MEAN CORPUSCULAR HGB CONC 33.4 g/dl (33.0-37.0); MEAN PLATELET VOLUME 10.4 fl (9.6-12.3); MONO # 0.7 10*3/uL (0.1-1.0); NEUT # 4.3 10*3/uL (2.3-7.9); NEUT % 56.4 % (47.0-73.0); PLATELET COUNT AUTOMATED 180 10*3/uL (130-400); RED BLOOD COUNT 4.59 10*6/uL (4.10-5.10); RED CELL DISTRI WIDTH 12.4 % (0-14.5); WHITE BLOOD COUNT 7.7 10*3/uL (4.8-10.8)
[2018-06-11 17:26] LABS: CLARITY CLEAR (CLEAR); COLOR YELLOW (YELLOW)
[2018-06-11 17:27] LABS: BILIRUBIN NEGATIVE (NEGATIVE); BLOOD NEGATIVE (NEGATIVE); GLUCOSE NEGATIVE (NEGATIVE); KETONE NEGATIVE (NEGATIVE); LEUKO ESTERASE TRACE (NEGATIVE); NITRITE NEGATIVE (NEGATIVE); RBC 0-2 rbc/hpf (0-2); SPECIFIC GRAVITY 1.005 (1.005-1.030); UROBILINOGEN 0.2 E.U./dl (0.2-1.0)
[2018-06-11 17:28] LABS: BACTERIA 1+; MUCOUS TRACE
[2018-06-11 17:31] LABS: ALBUMIN 3.5 gm/dl (3.1-4.5); BUN 19 mg/dl (7-24); CHLORIDE 111 mmol/L (98-107); CREATININE 1.07 mg/dL (0.55-1.02); PHOSPHOROUS 2.7 mg/dL (2.5-4.9); SODIUM 144 mmol/L (136-145)
== END | disposition home or self-care (01) ==
LOC: LAB 16:41
PROVIDERS: Internal Medicine Nephrology
DX: N18.3 Chronic kidney disease, stage 3 (moderate) (principal)

== ENCOUNTER → 2018-09-25 | Outpatient (CLI) | payer OTHER ==
--- NOTE | ~2018-09-25 | SLPPN ---
[place], [place] COLD PRESS OPERATOR PROGRESS NOTE NAME: BLANE JETT UNIT #: [id number] ROOM: DOCTOR: MARITZA HALL Speech Language Pathology Treatment Note Page 1 1 of Patient Name: BLANE JETT Date: 09/29/2018 03:25 PM : 1945 SOC Date: 09/25/2018 [facility] Provider #: [id number] Treating Clinician: MEGA Mccabe Referring Physician: MARITZA HALL Onset Date Description Code Primary Diagnosis: 09/25/2018 A0000 NO DIAGNOSIS SENT TO THE [facility] Time In: 09:00 AM Time Out: 10:00 AM COLD PRESS OPERATOR Interventions and CPT Codes Consisted of: CPT Code Modifiers Minutes Units MOTION FLUOROSCOPY/SWALLOW 14671 60 1 Total Minutes: 60 Total Timed Minutes: 0 Total Untimed Minutes: 60 Total Units: 1 Total Timed Units: 0 Total Untimed Units: 1 Goals Patient Goal(s) and/or Goal Comments: Initial evaluation created to initiate the electronic medical record. Please see [email or web address] for details. . 09/29/2018 8:26:01 AM MEGA Mccabe Date/Time State License #: [id number] CM:EL 7 7 [facility]
--- NOTE | ~2018-09-25 | PROC NOTE ---
[place], [place] PROCEDURE NOTE NAME: BLANE JETT UNIT #: [id number] ROOM: DOCTOR: TEVIN BATISTA BIRTHDATE: [birth year] DOS: 09/25/2018 HISTORY: The patient is known to this clinician and was seen outpatient for evaluation where bedside swallowing evaluation was complete. Bedside swallowing evaluation revealed reflexive coughing following sips of thin liquid and nectar like liquid. Delayed cough observed following trials with pudding like liquid. Patient was recommended to take small bites and sips and maintain good oral hygiene and a modified was recommended. The patient has diagnosis of primary progressive aphasia and presented today with aphonia and a communication board to communicate. The patient has previous medical history significant for lung cancer with resulting thoracotomy and lobectomy. METHODS AND MATERIALS USED FOR THE EXAM: The patient was positioned in the lateral plane and the exam was viewed under fluoroscopy. A variety of substances were used during this examination including barium coated applesauce, barium coated banana, thin barium, nectar thick barium and honey-thick barium. ORAL AND PHARYNGEAL PHASE: The patient demonstrated increased oral prep time across all consistencies, but demonstrated a timely pharyngeal swallow. Trace to mild lingual and posterior pharyngeal wall residues were present across all consistencies. The patient demonstrated mastication skills that were within functional limits for soft solids. The patient produced delayed coughing following trials of applesauce, nectar like and thin liquid barium; however, no penetration/aspiration observed across all consistencies. The patient demonstrated tolerance of mechanical soft consistency and thin liquid. Regular solids were not assessed due to the patient's preference. ESOPHAGEAL PHASE: This phase was not formally assessed during the evaluation. RECOMMENDATIONS: The patient recommended mechanical soft diet with thin liquids. [place] safe swallowing strategies are recommended. The patient to sit upright during all p.o. intake, take small bites and sips, alternate between solids and liquids to help remove pharyngeal residue and remain seated upright for 30 minutes following all meals. Results and recommendations were shared with patient and patient's following the evaluation. The patient's verbalized understanding and patient indicated understanding through a nod. No further speech therapy is needed due to functional pharyngeal swallow. [place], [place] PROCEDURE NOTE NAME: BLANE JETT UNIT #: [id number] ROOM: DOCTOR: TEVIN BATISTA BIRTHDATE: [birth year] Tevin Batista CM:PROCNOTE:PROCEDURE NOTE [id number] TEVIN BATISTA
--- NOTE | ~2018-09-25 | SLPIE ---
[place], [place] TENDERIZER TENDER INITIAL EVALUATION NAME: BLANE JETT UNIT #: [id number] ROOM: DOCTOR: MARITZA HALL Speech Language Pathology Initial Evaluation Page 1 1 of Patient Name: BLANE JETT Date: 09/25/2018 01:39 PM : 1945 SOC Date: 09/25/2018 [facility] Provider #: [id number] Treating Clinician: MEGA Mccabe Referring Physician: MARITZA HALL Patient Information Address: [address] [place] [address] Physician: MARITZA HALL Physician #: [facility], [facility], Zip: [place], [place] [address] Occupation: Unknown # of Approved Visits: 0 Gender: Female [employer]ets [employer] 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 Please see [employer] for details. Rehabilitation Information / History Clinical Findings Swallowing Swallowing Diagnostic Impressions and Recommendations Diagnostic Impressions Comments: Functional swallow, characterized by no penetration/aspiration occurring across all trialed consistencies. Diet Texture Recommendation Comments: Patient recommended regular diet (as tolerated) and thin liquids. [place] safe swallowing strategies recommended. Please refer to report in [employer]. Functional Goals Interventions/Plan MOTION FLUOROSCOPY/SWALLOW [id number] 09/29/2018 8:24:56 AM MEGA Mccabe Date/Time State License #: [id number] CM:[facility]
--- NOTE | ~2018-09-25 | SLPPOC ---
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 Please see [employer] for details. Initial Level Goals Swallowing Swallowing Diagnostic Impressions and Recommendations Diagnostic Impressions Comments: Functional swallow, characterized by no penetration/aspiration occurring across all trialed consistencies. Diet Texture Recommendation Comments: Patient recommended regular diet (as tolerated) and thin liquids. [place] safe swallowing strategies recommended. Please refer to report in [facility]. Interventions/Plan MOTION FLUOROSCOPY/SWALLOW [id number] 09/29/2018 8:24:56 AM MARITZA HALL Date/Time MEGA Mccabe I certify the need for these services furnished under this plan of treatment while under my care. State License #: [id number] CM:MAVIS 7 7 [facility] THERAP[facility]
--- NOTE | 2018-09-25 10:37 | NUR ---
SPEECH THERAPY Patient known to this clinican. Patient seen at outpatient for evaluation where bedside swallowing evaluation was complete. BSE revealed reflexive coughing following sips of thin liquid and nectar-like liquid. Delayed cough observed following trials of pudding-like liquid. Patient was recommended to take small bites and sips and maintain good oral hygiene and a MBS was recommended. Patient is aphonic and presented with dry erase board and marker for communication purposes. Consistencies adminstered this date were barium coated applesauec, barium coated banana, honey-like liquid via spoon, nectar-like liquid via straw, and thin liquid barium via straw x 3. Patient demonstrated increased oral prep time across all consistencies, but demonstrated a timely pharyngeal swallow. Trace-mild lingual and posterior pharyngeal wall residues present across all consistencies. Patient demonstrated mastication skills that were WFL with soft solids. Patient produced delayed coughing following trials of applesauce, nectar-like and thin liquid barium, however, no penetration/aspiration obserbed across all consistencies. Patient demonstrated tolerance of mechanical soft consistency and thin liquid. Regular solids were not assessed due to patient's preference. Patient recommended mechanical soft diet with thin liquids. [place] safe swallowing strategies are recommended. Patient should sit upright during all PO intake, take small bites and sips, alternate between solids and liquids to help remove pharyngeal resiudes, and remain seated upright for 30 minutes following all meals. Results and recommendations shared with patient and patient's following evaluation. Patient's verbalized understanding and patient indicated understanding through nod. Yojana Cardoso MA [employer]-COMMERCIAL ARTIST LETTERING
== END | disposition home or self-care (01) ==
LOC: RAD/SH 08:47
DX: R13.10 Dysphagia, unspecified (principal)

== ENCOUNTER → 2018-11-17 | Outpatient (CLI) | payer OTHER ==
[2018-11-17 11:06] LABS: BASO % 0.4 % (0.0-1.0); EOS # 0.1 10*3/uL (0.0-0.4); HEMATOCRIT 45.2 % (37.0-47.0); LYMPH # 1.6 10*3/uL (1.3-4.4); LYMPH % 22.7 % (27.0-41.0); MEAN CORPUSCULAR HGB 29.1 pg (27.0-31.0); MEAN PLATELET VOLUME 10.6 fl (9.6-12.3); MONO # 0.5 10*3/uL (0.1-1.0); NEUT # 4.7 10*3/uL (2.3-7.9); NEUT % 67.6 % (47.0-73.0); PLATELET COUNT AUTOMATED 201 10*3/uL (130-400); RED BLOOD COUNT 4.81 10*6/uL (4.10-5.10); RED CELL DISTRI WIDTH 12.6 % (0-14.5)
[2018-11-17 11:15] LABS: BUN 21 mg/dl (7-24); CHLORIDE 108 mmol/L (98-107); CREATININE 1.07 mg/dL (0.55-1.02); POTASSIUM 4.5 mmol/L (3.5-5.1); SODIUM 143 mmol/L (136-145)
[2018-11-19 11:06] LABS: APTT 26.9 sec (22.9-30.2)
== END | disposition home or self-care (01) ==
LOC: LAB 10:29
PROVIDERS: Nurse Practitioner Primary Care
DX: N18.3 Chronic kidney disease, stage 3 (moderate) (principal); R70.0 Elevated erythrocyte sedimentation rate; R23.8 Other skin changes

== ENCOUNTER → 2019-03-17 | Outpatient (CLI) | payer OTHER | END | disposition home or self-care (01) | LOC: RAD 08:35 | DX: J90 Pleural effusion, not elsewhere classified (principal) ==

== ENCOUNTER → 2019-04-09 | Outpatient (CLI) | payer OTHER | END | disposition home or self-care (01) | LOC: RAD 07:38 | DX: J43.9 Emphysema, unspecified (principal); J90 Pleural effusion, not elsewhere classified; Z87.891 Personal history of nicotine dependence ==

== ENCOUNTER → 2019-07-09 | Outpatient (CLI) | payer OTHER ==
[2019-07-09 08:03] LABS: BASO # 0.1 10*3/uL (0.0-0.1); BASO % 0.7 % (0.0-1.0); EOS # 0.2 10*3/uL (0.0-0.4); EOS % 2.5 % (1.0-4.0); HEMATOCRIT 46.8 % (37.0-47.0); HEMOGLOBIN 14.6 g/dl (12.0-16.0); LYMPH # 1.3 10*3/uL (1.3-4.4); LYMPH % 17.2 % (27.0-41.0); MEAN CELL VOLUME 93.4 fl (81.0-99.0); MEAN CORPUSCULAR HGB 29.1 pg (27.0-31.0); MEAN CORPUSCULAR HGB CONC 31.2 g/dl (33.0-37.0); MEAN PLATELET VOLUME 10.8 fl (9.6-12.3); MONO # 0.6 10*3/uL (0.1-1.0); NEUT # 5.4 10*3/uL (2.3-7.9); NEUT % 71.5 % (47.0-73.0); PLATELET COUNT AUTOMATED 225 10*3/uL (130-400); RED BLOOD COUNT 5.01 10*6/uL (4.10-5.10); RED CELL DISTRI WIDTH 13.7 % (0-14.5); WHITE BLOOD COUNT 7.5 10*3/uL (4.8-10.8)
[2019-07-09 08:13] LABS: BILIRUBIN NEGATIVE (NEGATIVE); BLOOD NEGATIVE (NEGATIVE); CLARITY CLOUDY (CLEAR); COLOR YELLOW (YELLOW); GLUCOSE NEGATIVE (NEGATIVE); KETONE NEGATIVE (NEGATIVE); LEUKO ESTERASE NEGATIVE (NEGATIVE); NITRITE NEGATIVE (NEGATIVE); PH 7.5 (5.0-9.0)
[2019-07-09 08:27] LABS: ALBUMIN 3.8 gm/dl (3.1-4.5); BUN 28 mg/dl (7-24); CHLORIDE 106 mmol/L (98-107); CREATININE 1.02 mg/dL (0.55-1.02); PHOSPHOROUS 3.4 mg/dL (2.5-4.9); POTASSIUM 4.1 mmol/L (3.5-5.1); SODIUM 142 mmol/L (136-145)
[2019-07-09 08:52] LABS: BACTERIA 1+
== END | disposition home or self-care (01) ==
LOC: LAB 07:35
PROVIDERS: Internal Medicine Nephrology
DX: N18.3 Chronic kidney disease, stage 3 (moderate) (principal)

== ENCOUNTER → 2020-01-04 | Outpatient (CLI) | payer OTHER | LOC: RAD 09:55 | DX: J44.1 Chronic obstructive pulmonary disease with (acute) exacerbation (principal); J90 Pleural effusion, not elsewhere classified ==

== ENCOUNTER → 2020-07-11 | Outpatient (CLI) | payer OTHER ==
[2020-07-11 18:15] LABS: BASO % 0.5 % (0.0-1.0); EOS # 0.1 10*3/uL (0.0-0.4); HEMATOCRIT 44.8 % (37.0-47.0); LYMPH # 1.4 10*3/uL (1.3-4.4); LYMPH % 17.7 % (27.0-41.0); MEAN CELL VOLUME 95.9 fl (81.0-99.0); MEAN CORPUSCULAR HGB 29.8 pg (27.0-31.0); MEAN PLATELET VOLUME 11.1 fl (9.6-12.3); MONO # 0.6 10*3/uL (0.1-1.0); NEUT # 5.6 10*3/uL (2.3-7.9); NEUT % 72.5 % (47.0-73.0); PLATELET COUNT AUTOMATED 202 10*3/uL (130-400); RED BLOOD COUNT 4.67 10*6/uL (4.10-5.10); RED CELL DISTRI WIDTH 12.7 % (0-14.5); WHITE BLOOD COUNT 7.7 10*3/uL (4.8-10.8)
[2020-07-11 18:47] LABS: ALBUMIN 3.9 gm/dl (3.1-4.5); BUN 35 mg/dl (7-24); CHLORIDE 105 mmol/L (98-107); POTASSIUM 4.4 mmol/L (3.5-5.1); SODIUM 140 mmol/L (136-145)
[2020-07-11 18:56] LABS: PTH INTACT 134.8 pg/mL (18.5-88.0); VITAMIN D, 25-HYDROXY 69.2 ng/mL (30-100)
[2020-07-11 22:53] LABS: BILIRUBIN Negative (Negative); BLOOD Negative (Negative); CLARITY Clear (Clear); COLOR Yellow (Yellow); GLUCOSE Negative (Negative); KETONE Negative (Negative); LEUKO ESTERASE 2+ (Negative); NITRITE Negative (Negative)
[2020-07-11 23:02] LABS: BACTERIA 1+
[2020-07-11 23:06] LABS: URINE CREATININE RANDOM 40.3 mg/dL
[2020-07-12 07:10] LABS: IMMUNOGLOBULIN G, QNT 924 mg/dL (586-1602); IMMUNOGLOBULIN M, QNT 101 mg/dL (26-217)
== END | disposition home or self-care (01) ==
LOC: LAB 16:58
PROVIDERS: ATTEND Internal Medicine Nephrology
DX: N18.30 Chronic kidney disease, stage 3 unspecified (principal)